=== PATIENT | female | born 1945 | race Caucasian/White ===

== ENCOUNTER → 2018-01-03 | Outpatient (CLI) | payer MEDICARE, OTHER ==
[~2018-01-03] VITALS: Ht 162.6 cm; Wt 123.4 kg
[~2018-01-03] MED LIST: AMLODIPINE BESY10 MG PO; ASPERCREME1 EACH; ASPIRIN325 PO; COZAAR 50 MG TA50 M2 PO; ERGOCALCIF50000 UNIT PO; FOLIC ACID1 MG PO; HYDRALAZINE 2525 MG PO; HYDROCODONE-AP1 EAC6 PO; IMDUR 60 MG TAB60 M1 PO; KEPPRA 500 MG500 M1 PO; LANTUS100 UNIT/M SUBQ; LASIX 40 MG TAB40 M2 PO; NEPHRO-VITE TA0.8 MG PO; PROTONIX40 M1 PO; RENVELA800 MG PO; SINGULAIR 10 MG10 M1 PO; VICTOZA 3-0.6 MG/0.1 SUBQ
[2018-01-03 13:05] LABS: HEMATOCRIT 34.5 % (37.0-47.0); HEMOGLOBIN 11.3 gm/dL (12.0-15.0); MCH 32.3 pg (26.0-34.0); MCHC 32.9 g/dL (28.0-37.0); MCV 98.3 fL (80.0-100.0); MPV 8.5 fl. (7.2-11.1); NUCLEATED RBCS 0 /100WBC; PLATELET COUNT* 220 thou/uL (150-400); RBC 3.51 mil/uL (4.20-5.00); RDW-CV 16.7 % (10.5-14.5); WBC 8.9 thou/uL (4.0-11.0)
[2018-01-03 13:12] VITALS: BP 115/53
[2018-01-03 13:18] LABS: CALCIUM 8.8 mg/dL (8.5-10.1); CREATININE 3.3 mg/dL (0.6-1.3); POTASSIUM 4.1 mmol/L (3.5-5.1)
[2018-01-03 13:23] LABS: ALBUMIN 3.1 g/dL (3.4-5.0); TOTAL BILIRUBIN 0.4 mg/dL (<0.1-1.0); TOTAL PROTEIN 6.7 g/dL (6.4-8.2)
[2018-01-03 13:28] LABS: ABSOLUTE BASOPHILS 0.1 thou/uL (0.0-0.2); ABSOLUTE EOSINOPHILS 0.2 thou/uL (0.0-0.7); ABSOLUTE LYMPHOCYTES 0.5 thou/uL (0.8-5.3); ABSOLUTE MONOCYTES 0.3 thou/uL (0.0-1.2); ABSOLUTE NEUTROPHILS 7.8 thou/uL (1.6-8.1); PLATELET ESTIMATE ADEQUATE
--- NOTE | 2018-01-03 16:30 | EKG ---
[place] [address] ELECTROCARDIOGRAM REPORT Name: ABDULLAHI TYLER Room: [facility]#: [id number] Admission: 01/03/18 Attend Phys: Alan Irene DO Discharge: Date of : 45 Report #: [id number] THIS REPORT FOR: //name// [facility] Test Date: 2018-01-03 Test Time: 12:56:13 Pat Name: ABDULLAHI TYLER Department: Room: Gender: F Public Relations Writer: : 1945 Requested By: Alan Irene Order Number: [id number] Reading MD: Johann Dodd Measurements Intervals [place] Rate: 78 P: 12 NV: 199 QRS: 28 QRSD: 95 T: 66 QT: 413 QTc: 471 Interpretive Statements Sinus rhythm Consider anterior infarct No previous ECG available for comparison Electronically Signed On 01-03-2018 16:30:32 CDT by Johann Dodd [email or web address] <ELECTRONICALLY SIGNED> By: Johann Dodd MD, [facility] 01/03/18 1630 1256 [id number] Johann Dodd MD, FACC /EPI
[2018-01-03 17:00] VITALS: BP 130/66
[2018-01-03 17:12] VITALS: BP 141/75
--- NOTE | 2018-01-07 07:34 | OP ---
[address] [address] OPERATIVE REPORT Name: ABDULLAHI TYLER [facility] [id number] Admission: 01/03/18 Attend Phys: Alan Irene DO Discharge: Date of : 45 Report #: [id number] THIS REPORT FOR: //name// CC: Alan Spencer Chad DATE OF SERVICE: 01/03/2018 PREOPERATIVE DIAGNOSES: 1. End-stage renal disease. 2. Infiltrated and thrombosed right upper extremity fistula. POSTOPERATIVE DIAGNOSES: 1. End-stage renal disease. 2. Infiltrated and thrombosed right upper extremity fistula. OPERATION: 1. Ultrasound-guided access to the right internal jugular vein. 2. Tunneled dialysis catheter placement. 3. Ultrasound-guided access to both the antegrade and retrograde direction to the right upper extremity fistula. 4. Attempted access, was unable to cross the wire through the thrombosed fistula. SURGEON: Alan Irene DO. SENIOR SOURCING MANAGER: None. ANESTHESIA: Sedation with local for 45 minutes at my discretion. FINDINGS: Ultrasound demonstrated the right internal jugular vein to be soft, compressible and suitable for access. The catheter was placed under fluoroscopic guidance with the tip at the right atrium SVC junction, aspirated and flushed well. Ultrasound interrogation of the right arm demonstrated the fistula to be thrombosed with a large surrounding hematoma. The fistula was accessed in both antegrade and retrograde fashions using ultrasound guidance. The needle tip was clearly positioned within the lumen in both antegrade and retrograde directions. However, the wire would not pass either antegrade or retrograde. The fistula was stuck in the middle of the vein, again confirming position the needle tip within the vein. Again, multiple attempts were made, but the wire would not pass through the fistula. CLINICAL HISTORY: The patient is a 72-year-old woman with end-stage renal disease. She had been dialyzing through a superficialized right brachiocephalic arteriovenous fistula. This had been running well without issue. Her tunneled dialysis catheter was removed last week. She then [place] [address] OPERATIVE REPORT Name: ABDULLAHI TYLER [facility] [id number] Admission: 01/03/18 Attend Phys: Alan Irene DO Discharge: Date of : 45 Report #: [id number] where it was infiltrated and she developed a large hematoma and further inability to access. She presents today for a fistulogram and catheter placement intervention. DESCRIPTION OF PROCEDURE: After informed consent was obtained, the patient was taken to the angio suite, placed on the angio bed in the supine position. She was administered sedation by the nurse at my discretion. The right neck and the right arm were prepped and draped in the usual sterile fashion. Full timeout was performed identifying correct patient and procedure. Next, using ultrasound guidance, the right internal jugular vein was identified. Skin and subcutaneous tissues were anesthetized with lidocaine anesthetic. It was accessed with an 18 gauge needle. These images were preserved. Using Seldinger technique, a wire was passed in the inferior vena cava. A small skin incision was made in the right neck. An introducer sheath was passed over the wire and a second wire was passed under fluoroscopic guidance in the inferior vena cava. Tract was then serially dilated. The catheter was then passed over the wires with the tip at the right atrium SVC junction. The wires and stylets were removed. The right chest wall was anesthetized with local anesthetic. Small skin incision was made. Tunneler was passed up to the neck in a retrograde fashion. The catheter was affixed to the tunneler and tunneled under fluoroscopic guidance to ensure no kinks or twist. The catheter was then tailored to length. Both ports were applied. Both ports aspirated and flushed well. Both ports were then packed with concentrated heparin. Sterile dressings were applied. We then turned our attention to the right upper extremity fistula. Ultrasound interrogation demonstrated it to be thrombosed with a large surrounding hematoma. I initially attempted to cross the thrombosed fistula in a retrograde direction. The upper arm was anesthetized with local anesthetic. Again, using ultrasound guidance, the needle tip was positioned within the cephalic vein in the upper arm and these ultrasound images were preserved. Again, using Seldinger technique, a microwire was attempted to pass; however, the wire would not pass. After multiple attempts at passing the wire, multiple sticks in the retrograde direction, I then turned my attention to trying to access in the antegrade direction. Again, using ultrasound guidance, the fistula was identified. Skin and subcutaneous tissues were anesthetized with local anesthetic. Again, using the micro needle this was positioned within the cephalic vein fistula, again confirming this with ultrasound guidance. Again, the micro wire would not pass after several attempts and several sticks in the antegrade direction. Next, I then directly accessed the fistula in the mid portion again using ultrasound guidance, again confirming the needle tip within the cephalic vein. Again, using multiple attempts were made to pass the wire; however, these were unsuccessful. I then utilized an 18-gauge introducer needle and a Glidewire, again accessing the vein in both antegrade and retrograde directions, again using ultrasound guidance and again confirming needle tip position within the vein. However, again the Glidewire would not pass. After multiple attempts in both the antegrade and retrograde direction, decision was [facility] [address] [place] [address] OPERATIVE REPORT Name: ABDULLAHI TYLER [facility] [id number] Admission: 01/03/18 Attend Phys: Alan Irene DO Discharge: Date of : 45 Report #: [id number] made to abort the remainder of the procedure. Manual pressure was held on the multiple access sites. Once hemostasis was ensured, dressings were applied. All sponge, sharp and instrument counts reported correct x 2. She tolerated the procedure well and was transferred to the recovery area in stable condition. At this point, I do not believe that her fistula would be salvageable. She will likely require new access, possibly a graft the right upper extremity or I will have to review her left upper extremity vein mapping for possible options. <ELECTRONICALLY SIGNED> By: Alan Irene DO 01/07/18 0734 1642 1720Alan Irene DO /nt
== END | disposition home or self-care (01) ==
LOC: M.INT 12:14
PROVIDERS: Surgery
DX: I13.2 Hypertensive heart and chronic kidney disease with heart failure and with stage 5 chronic kidney disease, or end stage renal disease (principal); N18.6 End stage renal disease; T82.868A Thrombosis due to vascular prosthetic devices, implants and grafts, initial encounter; E11.22 Type 2 diabetes mellitus with diabetic chronic kidney disease; I50.9 Heart failure, unspecified; K21.9 Gastro-esophageal reflux disease without esophagitis; Z98.890 Other specified postprocedural states; Z86.73 Personal history of transient ischemic attack (TIA), and cerebral infarction without residual deficits; Z79.82 Long term (current) use of aspirin; Z79.899 Other long term (current) drug therapy; Z79.891 Long term (current) use of opiate analgesic; Z79.4 Long term (current) use of insulin